=== PATIENT | female | born 1935 ===

== ENCOUNTER 2017-09-03 11:44 | Inpatient (IN) | payer MEDICARE, BC ==
[~2017-09-03 11:44] MED LIST: ETOMIDATE 20 MG INJ; PROVENTIL HFA 6.7GM INHALER
[2017-09-03] MEDS: TRANEXAMIC ACID 1,000 MG in D5W 100 ML AT INCISION X1 IVPB (12:00)
[2017-09-03] MEDS: TRANEXAMIC ACID 1,000 MG in D5W 100 ML AT CLOSURE X1 IVPB (12:00)
[2017-09-03] MEDS: LACTATED RINGER'S 1,000 ML IV (12:00)
[2017-09-03] MEDS: CEFAZOLIN 2 GM/50 ML (PMX) 50 ML (FOR WT < 120 KG) IVPB (12:00)
[2017-09-03 13:11] LABS: ADD MAN DIFF? NO
[2017-09-03 13:13] LABS: BASOPHILS % 0.4 % (0.0-2.0); EOSINOPHILS # 0.1 10^3/ul (0.0-0.5); EOSINOPHILS % 0.8 % (0.0-7.0); HEMATOCRIT 38.9 % (37.0-47.0); HEMOGLOBIN 13.2 g/dl (12.0-16.0); LYMPHOCYTES # 2.4 10^3/ul (0.8-2.9); LYMPHOCYTES % 26.2 % (15.0-51.0); MEAN CORPUSCULAR HEMOGLOBIN 31.4 pg (29.0-33.0); MEAN CORPUSCULAR HGB CONC 33.9 g/dl (32.0-37.0); MEAN CORPUSCULAR VOLUME 92.4 fl (82.0-101.0); MEAN PLATELET VOLUME 9.9 fl (7.4-10.4); MONOCYTE # 0.7 10^3/ul (0.3-0.9); MONOCYTES % 7.5 % (0.0-11.0); NEUTROPHIL # 5.9 10^3/ul (1.6-7.5); NEUTROPHILS % 64.9 % (39.0-77.0); PLATELET COUNT 281 10^3/UL (140-415); RED BLOOD COUNT 4.21 10^6/ul (4.20-5.40); RED CELL DISTRIBUTION WIDTH 12.6 % (11.5-14.5)
[2017-09-03 13:13] LABS: WHITE BLOOD COUNT 9.1 10^3/ul (4.8-10.8)
[2017-09-03] MEDS ORDERED: ROCURONIUM 50 MG INJ (13:46)
[2017-09-03] MEDS ORDERED: MIDAZOLAM 1 MG/ML 2 ML INJ (13:46)
[2017-09-03] MEDS ORDERED: ONDANSETRON 4 MG INJ (13:46)
[2017-09-03] MEDS ORDERED: FENTAnyl 50 MCG/ML VIAL (13:46)
[2017-09-03] MEDS ORDERED: NEOSTIGMINE 3 MG/3 ML SYRINGE (13:46)
[2017-09-03] MEDS ORDERED: CEFAZOLIN 1 GM INJ (13:46)
[2017-09-03] MEDS ORDERED: DEXAMETHASONE 4 MG/ML 1 ML INJ (13:46)
[2017-09-03] MEDS ORDERED: GLYCOPYRROLATE 0.4 MG INJ (13:46)
[2017-09-03] MEDS ORDERED: PROPOFOL 20 ML (13:46)
[2017-09-03] MEDS ORDERED: SODIUM CL BACTERIOSTATIC 30 ML INJ (14:54)
[2017-09-03] MEDS ORDERED: BETHANECHOL 25 MG TAB PO (15:00)
[2017-09-03] MEDS ORDERED: NALOXONE (0.4 MG/ML) INJ IV (15:00)
[2017-09-03] MEDS ORDERED: DIPHENHYDRAMINE 50 MG INJ IV (15:00)
[2017-09-03] MEDS ORDERED: BISACODYL 10 MG SUPP PR (15:00)
[2017-09-03] MEDS ORDERED: oxyCODONE 5 MG TAB PO (15:00)
[2017-09-03] MEDS ORDERED: BUPIVACAINE 0.75%/DEXT (SPINAL) 2 ML INJ (15:22)
[2017-09-03] MEDS: BACITRACIN 50000 UNITS INJ (15:45)
[2017-09-03] MEDS: POLYMYXIN B 500000 UNIT INJ (15:45)
[2017-09-03] MEDS ORDERED: SUGAMMADEX SODIUM 200 MG/2 ML VIAL IV (16:56)
[2017-09-03] MEDS: DOCUSATE SODIUM 100 MG CAP PO (17:37)
[2017-09-03] MEDS: ASPIRIN (EC) 325 MG TAB PO (17:37)
[2017-09-03] MEDS: SOD CHLORIDE 0.9% 1,000 ML IV (17:38)
[2017-09-03] MEDS: ONDANSETRON 4 MG INJ IV ×2 (17:38→20:17)
[2017-09-03] MEDS: CEFAZOLIN 1 GM/50 ML (PMX) 50 ML IVPB ×2 (17:38→23:02)
[2017-09-03] MEDS: ATORVASTATIN 40 MG TAB PO (20:17)
[2017-09-03] MEDS: CELECOXIB 100 MG CAP PO (20:17)
[2017-09-03] MEDS: GABAPENTIN 100 MG CAP PO (20:17)
[2017-09-03] MEDS: oxyCODONE 5 MG TAB PO ×2 (20:17→23:02)
[2017-09-04] MEDS: ONDANSETRON 4 MG INJ IV ×2 (03:10→08:34)
[2017-09-04] MEDS: oxyCODONE 5 MG TAB PO ×3 (03:10→11:53)
[2017-09-04] MEDS: SOD CHLORIDE 0.9% 1,000 ML IV ×2 (03:11→15:59)
[2017-09-04 05:44] LABS: ADD MAN DIFF? NO
[2017-09-04 05:55] LABS: WHITE BLOOD COUNT 11.6 10^3/ul (4.8-10.8)
[2017-09-04 05:55] LABS: BASOPHILS % 0.1 % (0.0-2.0); HEMATOCRIT 36.5 % (37.0-47.0); HEMOGLOBIN 12.2 g/dl (12.0-16.0); LYMPHOCYTES # 0.8 10^3/ul (0.8-2.9); MEAN CORPUSCULAR HGB CONC 33.4 g/dl (32.0-37.0); MEAN CORPUSCULAR VOLUME 92.9 fl (82.0-101.0); MONOCYTE # 0.2 10^3/ul (0.3-0.9); MONOCYTES % 1.7 % (0.0-11.0); NEUTROPHIL # 10.5 10^3/ul (1.6-7.5); NEUTROPHILS % 90.9 % (39.0-77.0); PLATELET COUNT 276 10^3/UL (140-415); RED BLOOD COUNT 3.93 10^6/ul (4.20-5.40); RED CELL DISTRIBUTION WIDTH 12.3 % (11.5-14.5)
[2017-09-04 06:06] LABS: ANION GAP 11 (8-16); BLOOD UREA NITROGEN 23 mg/dl (7-20); CALCIUM 9.2 mg/dl (8.4-10.2); CARBON DIOXIDE 32 mmol/L (21-31); CHLORIDE 107 mmol/L (97-110); CREATININE 0.82 mg/dl (0.44-1.00); GLUCOSE 139 mg/dl (70-220); POTASSIUM 5.5 mmol/L (3.5-5.1); SODIUM 144 mmol/L (135-144)
[2017-09-04 06:37] LABS: THYROID STIMULATING HORMONE 0.445 MIU/L (0.465-4.680)
[2017-09-04] MEDS: CEFAZOLIN 1 GM/50 ML (PMX) 50 ML IVPB (07:00)
[2017-09-04 08:32] LABS: FREE T4 (FREE THYROXINE) 1.36 ng/dl (0.85-1.93); T4 (THYROXINE) 7.7 ug/dl (5.5-11.0)
[2017-09-04] MEDS: AMLODIPINE 10 MG TAB PO (08:33)
[2017-09-04] MEDS: DOCUSATE SODIUM 100 MG CAP PO ×2 (08:33→20:46)
[2017-09-04] MEDS: CELECOXIB 100 MG CAP PO ×2 (08:33→20:47)
[2017-09-04] MEDS: HYDROCHLOROTHIAZIDE 12.5 MG CAP PO (08:33)
[2017-09-04] MEDS: CHOLECALCIFEROL 1,000 UNIT TAB PO (08:33)
[2017-09-04] MEDS: FERROUS FUMARATE (SR) TAB PO ×2 (08:33→20:46)
[2017-09-04] MEDS: ASPIRIN (EC) 325 MG TAB PO (08:33)
[2017-09-04] MEDS: GABAPENTIN 100 MG CAP PO ×2 (08:33→20:46)
[2017-09-04] MEDS: SENNA/DOCUSATE NA (8.6MG/50MG) TAB PO ×2 (08:34→17:57)
[2017-09-04] MEDS ORDERED: LOSARTAN 50 MG TAB PO (09:00)
[2017-09-04] MEDS: LACTATED RINGER'S 1,000 ML IV (12:00)
[2017-09-04] MEDS: ATORVASTATIN 40 MG TAB PO (20:46)
[2017-09-05] MEDS: SOD CHLORIDE 0.9% 1,000 ML IV ×2 (04:29→16:59)
[2017-09-05 06:39] LABS: ADD MAN DIFF? NO
[2017-09-05] MEDS: PANTOPRAZOLE (EC) 40 MG TAB PO (06:48)
[2017-09-05] MEDS: MAGNESIUM HYDROXIDE 30ML CUP PO ×2 (06:48→20:35)
[2017-09-05] MEDS: DOCUSATE SODIUM 100 MG CAP PO ×2 (08:55→20:30)
[2017-09-05] MEDS: CELECOXIB 100 MG CAP PO ×2 (08:55→20:30)
[2017-09-05] MEDS: FERROUS FUMARATE (SR) TAB PO ×2 (08:55→20:30)
[2017-09-05] MEDS: CHOLECALCIFEROL 1,000 UNIT TAB PO (08:56)
[2017-09-05] MEDS: GABAPENTIN 100 MG CAP PO ×2 (08:56→20:30)
[2017-09-05] MEDS: AMLODIPINE 10 MG TAB PO (08:56)
[2017-09-05] MEDS: ASPIRIN (EC) 325 MG TAB PO (08:56)
[2017-09-05] MEDS: HYDROCHLOROTHIAZIDE 12.5 MG CAP PO (08:57)
[2017-09-05 09:20] LABS: ANION GAP 12 (8-16); BLOOD UREA NITROGEN 24 mg/dl (7-20); CALCIUM 9.3 mg/dl (8.4-10.2); CARBON DIOXIDE 36 mmol/L (21-31); CHLORIDE 101 mmol/L (97-110); CREATININE 0.92 mg/dl (0.44-1.00); GLUCOSE 102 mg/dl (70-220); POTASSIUM 4.8 mmol/L (3.5-5.1); SODIUM 144 mmol/L (135-144)
[2017-09-05 09:53] LABS: WHITE BLOOD COUNT 16.2 10^3/ul (4.8-10.8)
[2017-09-05 09:53] LABS: HEMATOCRIT 35.3 % (37.0-47.0); HEMOGLOBIN 11.5 g/dl (12.0-16.0); MEAN CORPUSCULAR HEMOGLOBIN 31.2 pg (29.0-33.0); MEAN CORPUSCULAR HGB CONC 32.6 g/dl (32.0-37.0); MEAN CORPUSCULAR VOLUME 95.7 fl (82.0-101.0); RED BLOOD COUNT 3.69 10^6/ul (4.20-5.40); RED CELL DISTRIBUTION WIDTH 12.8 % (11.5-14.5)
[2017-09-05 09:54] LABS: LYMPHOCYTES % 2.5 % (15.0-51.0); MEAN PLATELET VOLUME 10.2 fl (7.4-10.4); MONOCYTES % 1.2 % (0.0-11.0); NEUTROPHILS % 12.4 % (39.0-77.0); PLATELET COUNT 268 10^3/UL (140-415)
[2017-09-05] MEDS: LOSARTAN 50 MG TAB PO (12:35)
[2017-09-05] MEDS: LACTATED RINGER'S 1,000 ML IV (12:37)
[2017-09-05] MEDS: KETOROLAC 15 MG INJ IV (17:33)
[2017-09-05] MEDS: ATORVASTATIN 40 MG TAB PO (20:30)
[2017-09-06] MEDS: SOD CHLORIDE 0.9% 1,000 ML IV ×2 (05:29→16:42)
[2017-09-06] MEDS: TRIMETHOBENZAMIDE 100 MG/ML VIAL IM (06:29)
[2017-09-06] MEDS: PANTOPRAZOLE (EC) 40 MG TAB PO (06:29)
[2017-09-06 06:31] LABS: ADD MAN DIFF? NO
[2017-09-06] MEDS ORDERED: VITAMIN A & D 5 GM OINT PACKET TOP (06:34)
[2017-09-06] MEDS: oxyCODONE 5 MG TAB PO ×2 (06:35→15:54)
[2017-09-06 06:41] LABS: WHITE BLOOD COUNT 12.1 10^3/ul (4.8-10.8)
[2017-09-06 06:41] LABS: BASOPHILS % 0.3 % (0.0-2.0); EOSINOPHILS # 0.1 10^3/ul (0.0-0.5); EOSINOPHILS % 1.2 % (0.0-7.0); HEMATOCRIT 32.8 % (37.0-47.0); HEMOGLOBIN 10.9 g/dl (12.0-16.0); LYMPHOCYTES % 24.6 % (15.0-51.0); MEAN CORPUSCULAR HEMOGLOBIN 31.1 pg (29.0-33.0); MEAN CORPUSCULAR HGB CONC 33.2 g/dl (32.0-37.0); MEAN CORPUSCULAR VOLUME 93.7 fl (82.0-101.0); MEAN PLATELET VOLUME 10.6 fl (7.4-10.4); MONOCYTE # 1.1 10^3/ul (0.3-0.9); MONOCYTES % 8.7 % (0.0-11.0); NEUTROPHIL # 7.9 10^3/ul (1.6-7.5); NEUTROPHILS % 64.9 % (39.0-77.0); PLATELET COUNT 234 10^3/UL (140-415); RED CELL DISTRIBUTION WIDTH 12.8 % (11.5-14.5)
[2017-09-06 06:56] LABS: ANION GAP 16 (8-16); BLOOD UREA NITROGEN 25 mg/dl (7-20); CALCIUM 8.9 mg/dl (8.4-10.2); CARBON DIOXIDE 32 mmol/L (21-31); CHLORIDE 99 mmol/L (97-110); CREATININE 0.78 mg/dl (0.44-1.00); GLUCOSE 90 mg/dl (70-220); SODIUM 143 mmol/L (135-144)
[2017-09-06] MEDS: GABAPENTIN 100 MG CAP PO ×2 (08:29→21:54)
[2017-09-06] MEDS: DOCUSATE SODIUM 100 MG CAP PO ×2 (08:29→21:54)
[2017-09-06] MEDS: HYDROCHLOROTHIAZIDE 12.5 MG CAP PO (08:29)
[2017-09-06] MEDS: FERROUS FUMARATE (SR) TAB PO ×2 (08:29→21:53)
[2017-09-06] MEDS: LOSARTAN 50 MG TAB PO (08:30)
[2017-09-06] MEDS: CELECOXIB 100 MG CAP PO ×2 (08:30→21:53)
[2017-09-06] MEDS: ASPIRIN (EC) 325 MG TAB PO (08:30)
[2017-09-06] MEDS: CHOLECALCIFEROL 1,000 UNIT TAB PO (08:30)
[2017-09-06] MEDS: AMLODIPINE 10 MG TAB PO (08:31)
[2017-09-06] MEDS: LACTATED RINGER'S 1,000 ML IV (11:14)
[2017-09-06] MEDS: SENNA/DOCUSATE NA (8.6MG/50MG) TAB PO (15:54)
[2017-09-06] MEDS: ATORVASTATIN 40 MG TAB PO (21:53)
[2017-09-07 06:21] LABS: ADD MAN DIFF? NO
[2017-09-07] MEDS: SOD CHLORIDE 0.9% 1,000 ML IV (06:29)
[2017-09-07] MEDS: PANTOPRAZOLE (EC) 40 MG TAB PO (06:43)
[2017-09-07] MEDS: NA PHOSPHATE/BIPHOS 133 ML ENEMA PR (06:44)
[2017-09-07 06:46] LABS: BASOPHILS % 0.4 % (0.0-2.0); EOSINOPHILS # 0.1 10^3/ul (0.0-0.5); EOSINOPHILS % 1.3 % (0.0-7.0); HEMATOCRIT 33.3 % (37.0-47.0); HEMOGLOBIN 10.9 g/dl (12.0-16.0); LYMPHOCYTES # 2.7 10^3/ul (0.8-2.9); LYMPHOCYTES % 25.1 % (15.0-51.0); MEAN CORPUSCULAR HGB CONC 32.7 g/dl (32.0-37.0); MEAN CORPUSCULAR VOLUME 94.6 fl (82.0-101.0); MEAN PLATELET VOLUME 10.5 fl (7.4-10.4); NEUTROPHIL # 6.8 10^3/ul (1.6-7.5); NEUTROPHILS % 63.8 % (39.0-77.0); PLATELET COUNT 253 10^3/UL (140-415); RED BLOOD COUNT 3.52 10^6/ul (4.20-5.40)
[2017-09-07 06:46] LABS: WHITE BLOOD COUNT 10.6 10^3/ul (4.8-10.8)
[2017-09-07 07:13] LABS: ANION GAP 13 (8-16); BLOOD UREA NITROGEN 22 mg/dl (7-20); CALCIUM 8.7 mg/dl (8.4-10.2); CARBON DIOXIDE 31 mmol/L (21-31); CHLORIDE 101 mmol/L (97-110); CREATININE 0.73 mg/dl (0.44-1.00); GLUCOSE 104 mg/dl (70-220); POTASSIUM 3.9 mmol/L (3.5-5.1); SODIUM 141 mmol/L (135-144)
[2017-09-07] MEDS: FERROUS FUMARATE (SR) TAB PO (08:47)
[2017-09-07] MEDS: LOSARTAN 50 MG TAB PO (08:47)
[2017-09-07] MEDS: ASPIRIN (EC) 325 MG TAB PO (08:47)
[2017-09-07] MEDS: GABAPENTIN 100 MG CAP PO (08:48)
[2017-09-07] MEDS: CHOLECALCIFEROL 1,000 UNIT TAB PO (08:48)
[2017-09-07] MEDS: HYDROCHLOROTHIAZIDE 12.5 MG CAP PO (08:48)
[2017-09-07] MEDS: CELECOXIB 100 MG CAP PO (08:48)
[2017-09-07] MEDS: AMLODIPINE 10 MG TAB PO (08:48)
[2017-09-07] MEDS: DOCUSATE SODIUM 100 MG CAP PO (08:49)
[2017-09-07] MEDS: HYDROCODONE/APAP (5/325) TAB PO ×2 (10:37→14:38)
[2017-09-07] MEDS: LACTATED RINGER'S 1,000 ML IV (11:35)
== END 2017-09-07 15:24 | DRG 470 ==
LOC: REC 11:44 → MS1 18:22
PROVIDERS: Orthopaedic Surgery
PROC: 0SRD0JA Replacement of Left Knee Joint with Synthetic Substitute, Uncemented, Open Approach (ICD-10-PCS; principal; 2017-09-03 15:18)
DX: M17.12 Unilateral primary osteoarthritis, left knee (principal)
CPT/HCPCS: 73560; 80048; 84436; 84439; 84443; 85025; 86850; 86900; 86901; 87081; 88304; 88311; 97110; 97116; 97162; 97165; 97530